=== PATIENT | female | born 2000 | race Hispanic/Latino ===

== ENCOUNTER 2019-08-29 22:24 | Emergency (ER) | payer BC, OTHER ==
--- NOTE | 2019-08-29 22:26 | ED.PDOC ---
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 Patient was running to get into the car during the rain and accidentally open the car door into her right eyebrow region causing a small linear laceration across the right eyebrow. She reports minimal bleeding which is now stopped. Reports minimal 1/10 constant sharp pain to the area without radiation, worse with palpation, no medications taken for relief. Denies any major head injury, headache, LOC, neck pain, vision changes, other injuries. Reports she is up-to-date on immunizations. Home Medications: Ambulatory Orders NK 08/29/19 Review of Systems - Review of Systems Review of Systems: 08/29/19 23:00 as per HPI All other Systems: Reviewed and Negative Past Medical History (General) - Patient Medical History Hx Asthma: No Hx Hypertension: No Hx Diabetes: No Surgical History: no surgical history - Vaccination History Hx Tetanus, Diphtheria Vaccination: Yes - Social History Hx Tobacco Use: No Hx Alcohol Use: No Hx Substance Use: No Family Medical History - Family History Mother Family History: No Known Physical Exam - Physical Exam General Appearance: Alert, Comfortable, No apparent distress Eye Exam: bilateral normal Ears, Nose, Throat: hearing grossly normal, normal ENT inspection, normal pharynx Neck: non-tender, full range of motion, supple, normal inspection Respiratory: lungs clear, normal breath sounds, no respiratory distress, no accessory muscle use Cardiovascular/Chest: normal peripheral pulses, regular rate, rhythm, no murmur Gastrointestinal/Abdominal: non tender, soft Back Exam: normal inspection Extremity: normal range of motion, normal inspection 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 Discussed further wound care and management at home. -DC to home in good condition, return warnings discussed MD Ángel Reiding #[id number] Procedures - Laceration/Wound Repair Right Face Wound Length (cm): 1 Wound's Depth, Shape: superficial, linear Wound Explored: clean Betadine Prep?: No - copious Hibiclens and sterile water Wound Repaired With: dermabond Departure - Departure Clinical Impression: Laceration of eyebrow, right Time of Disposition: 23:05 Disposition: Discharge to Home or Self Care Condition: Good Instructions: DI for Laceration Repair With Dermabond Diet: resume usual diet Activity: increase activity as tolerated Home Medications: Ambulatory Orders NK 08/29/19 Additional Instructions: Follow the discharge instructions for wound closure with tissue adhesive. The adhesive should naturally dissolve over the next 3 to 5 days. Avoid any moisture to the area or topical ointments which may cause the adhesive to dissolve faster than intended. Return to the ED if the wound develops worsening redness, swelling, warmth, or puslike drainage which may indicate infection. Otherwise follow-up with your primary care physician as scheduled or sooner as needed.
[2019-08-29 22:42] VITALS: BP 139/95; TEMP 97.3; O2SAT 99
[2019-08-29] MEDS ORDERED: CHLORHEXIDINE GLUCONATE 4 % 15 ML UD TOP ONE (22:42)
== END 2019-08-29 23:08 | disposition home or self-care (01) ==
LOC: ER 22:24
DX: S01.111A Laceration without foreign body of right eyelid and periocular area, initial encounter (principal); W22.8XXA Striking against or struck by other objects, initial encounter; Y92.9 Unspecified place or not applicable